=== PATIENT | male | born 2000 | race Caucasian/White ===

== ENCOUNTER 2024-10-02 14:56 | Emergency (ER) | payer BC, SELFPAY ==
--- NOTE | ~2024-10-02 | XR_ITS ---
EXAMINATION: XR foot RT min 3V DATE: 10/02/2024 15:33 INDICATION: Lateral right foot pain post injury 2 days prior TECHNIQUE: Dorsoplantar, two oblique and lateral views of the right foot were obtained. COMPARISON: None. FINDINGS: Alignment is normal. No fracture. Joint spaces are normal. Bone island at the posterior calcaneus. Fo akiko mild soft tissue swelling dorsal to the midfoot. No ankle joint effusion. IMPRESSION: 1. No acute osseous abnormality. Reviewed, dictated and finalized at location A.
[2024-10-02 15:11] VITALS: BP 134/78; PULSE 81; RESP 16; TEMP 36.5; O2SAT 100
--- NOTE | 2024-10-02 15:49 | ED_ITS ---
HPI - General Adult General Chief complaint: Extremity Injury, Lower Stated complaint: R FOOT INJURY Source: patient Mode of arrival: ambulatory Limitations: no limitations History of Present Illness HPI narrative: Patient presents for evaluation of right foot pain. Symptom onset 2 days ago. He was showering after exercising and hit his foot against the transition out of the shower. He states his pain seemed to worsen yesterday. He rates it as 7/10 in severity. Pain is worse with weightbearing/walking. He has not taken any medication to assist with his symptoms. Related Data Home Medications ?Medication ?Instructions ?Recorded ?Confirmed ?Last Taken ?Type No Home Medications 10/02/24 10/02/24 Unknown History Allergies Allergy/AdvReac Type Severity Reaction Status Date / Time gluten Allergy Unknown Unknown Verified 10/02/24 15:21 Review of Systems Review of Systems: CONSTITUTIONAL: Denies fever, chills, or sweats. EYES: Denies visual changes, redness, or discharge. ENT: Denies rhinorrhea, congestion, sore throat, or otalgia. CARDIOVASCULAR: Denies chest pain, palpitations, or edema. RESPIRATORY: Denies cough or dyspnea. GASTROINTESTINAL: Denies abdominal pain, nausea, vomiting, or diarrhea. GENITOURINARY: Denies dysuria or hematuria. SKIN: Denies rash or itching. MUSCULOSKELETAL: Reports right sided foot pain NEUROLOGIC: Denies headache, numbness, dizziness, or weakness. PSYCHIATRIC: Denies anxiety or depression. PMFSH Past Medical History Medical History No pertinent past medical history Surgical History Surgical History No pertinent past surgical history Family History Family History Mother Family history non-contributory Social History Social History Substance use: never Gender identity (if verbalized by the patient): Male Spiritual care concerns: No Exam Narrative: GENERAL: Well-appearing, well-nourished, and in no acute distress. HEAD: Normocephalic, atraumatic. EYES: PERRLA and EOMI. ENT: Nares clear, no rhinorrhea or epistaxis. Mucous membranes moist. Oropharynx without tonsillar hypertrophy exudate or other lesions. Bilateral TMs pearly landon nonbulging NECK: Supple. No adenopathy or masses. No carotid bruits or JVD CHEST: Clear to auscultation. No respiratory distress. No wheezes rales or rhonchi HEART: Regular rate and rhythm. No murmur heard. Normal peripheral pulses. ABDOMEN: Soft, nontender, nondistended, normal active bowel sounds. EXTREMITIES: There is tenderness over the lateral aspect of the right foot, overlying the 4th and 5th metatarsals. No significant swelling SKIN: Warm, dry, no rash. NEURO: No focal deficits. Alert and oriented x3. PSYCH: Normal mood and affect. Course Course Emergency Course: This is a 24-year-old male who presented for evaluation of right foot pain. X-ray negative for fracture. Provided with postop shoe and crutches. Recommend follow-up in the next week for further evaluation and treatment to ensure no occult fracture. NSAIDs for pain. Advised on RICE therapy. Go to the ER for worsening symptoms. Pt in agreement with plan of care. Level of Care: Express Care Visit Vital Signs Vital signs: Vital Signs Temperature 36.5 C 10/02/24 15:11 Pulse Rate 81 10/02/24 15:11 Respiratory Rate 16 10/02/24 15:11 Blood Pressure 134/78 10/02/24 15:11 Pulse Oximetry 100 10/02/24 15:11 Temperature 36.5 C 10/02/24 15:11 Pulse Rate 81 10/02/24 15:11 Respiratory Rate 16 10/02/24 15:11 Blood Pressure 134/78 10/02/24 15:11 Pulse Oximetry 100 10/02/24 15:11 Medical Decision Making Vital Signs Vital Signs: Vital Signs Temperature 36.5 C 10/02/24 15:11 Pulse Rate 81 10/02/24 15:11 Respiratory Rate 16 10/02/24 15:11 Blood Pressure 134/78 10/02/24 15:11 Pulse Oximetry 100 10/02/24 15:11 Temperature 36.5 C 10/02/24 15:11 Pulse Rate 81 10/02/24 15:11 Respiratory Rate 16 10/02/24 15:11 Blood Pressure 134/78 10/02/24 15:11 Pulse Oximetry 100 10/02/24 15:11 Imaging Data Radiologist's impression: EXAMINATION: XR foot RT min 3V DATE: 10/02/2024 15:33 INDICATION: Lateral right foot pain post injury 2 days prior TECHNIQUE: Dorsoplantar, two oblique and lateral views of the right foot were obtained. COMPARISON: None. FINDINGS: Alignment is normal. No fracture. Joint spaces are normal. Bone island at the posterior calcaneus. Focal mild soft tissue swelling dorsal to the midfoot. No ankle joint effusion. IMPRESSION: 1. No acute osseous abnormality. Discharge Plan Discharge Clinical Impression: Contusion of foot Patient Disposition: Home Condition: Stable Instructions: Antibiotic Form, Foot Contusion (ED) Patient Language: Taiwanese Prescriptions: No Action No Home Medications Follow-up/Referrals: Ya Martin DO [Physician] - Time of Disposition: 15:48
== END 2024-10-02 15:53 | disposition home or self-care (01) ==
PROVIDERS: Emergency Provider Nurse Practitioner
DX: S90.31XA Contusion of right foot, initial encounter (principal); W22.8XXA Striking against or struck by other objects, initial encounter; Y93.E1 Activity, personal bathing and showering
CPT/HCPCS: 73630; 99213; G0463

== ENCOUNTER 2024-10-09 12:52 | Emergency (ER) | payer BC, SELFPAY ==
[2024-10-09 13:03] VITALS: BP 110/85; PULSE 73; RESP 16; TEMP 36.2; O2SAT 100
--- NOTE | 2024-10-09 13:43 | ED_ITS ---
HPI - Ear Problem General Chief complaint: Ear Stated complaint: Ear Clogged Time Seen by Provider: 10/09/24 13:44 Source: patient, RN notes reviewed and old records reviewed Mode of arrival: ambulatory Limitations: no limitations History of Present Illness HPI Narrative: 24-year-old male presents to the [facility] with right ear clogged cannot hear at his right ear started this morning. Tried using Q-tips to make it better, states that he thinks he made it worse. Related Data Allergies Allergy/AdvReac Type Severity Reaction Status Date / Time gluten Allergy Unknown Unknown Verified 10/09/24 13:02 Review of Systems Review of Systems: All systems reviewed & are unremarkable except as noted in HPI and below Constitutional: Constitutional: Reports no additional constitutional complaints ENT: Reports as per HPI Cardiovascular: Cardiovascular: Reports no additional cardiovascular complaints, Denies chest pain and Denies dyspnea Respiratory: Respiratory: Reports no additional respiratory complaints, Denies chest congestion, Denies cough and Denies dyspnea Musculoskeletal: Musculoskeletal: Reports no additional musculoskeletal complaints Integumentary/Breasts: Skin/Breast: Reports system reviewed and no additional complaints, except as docu PMFSH Past Medical History Medical History No pertinent past medical history Surgical History Surgical History No pertinent past surgical history Family History Family History Mother Family history non-contributory Social History Social History Substance use: never Gender identity (if verbalized by the patient): Male Spiritual care concerns: No Comments At the time of my signature, I reviewed and agree with the nursing past medical, surgical, social, and family history. There is no relevant family history pertinent to the patient complaint. Exam Const: General: cooperative, healthy appearing, comfortable, no acute distress, well developed, alert and well nourished Nutritional Appearance: well nourished Orientation/consciousness: patient oriented x3 Limitations: no limitations HENMT: Head: normal to inspection Ears: external ears normal, mastoids normal, no periauricular adenopathy and Abnormal EAC present cerumen impaction bilateral and erythema on the right Face/Nose/Sinus: Normal external nose present Mouth: Yes Normal oral and palatal mucosa present, Yes lip normal, Yes tongue normal and Yes moist mucous membranes Throat: posterior oropharynx normal, uvula midline and no uvular edema Eyes: General: appearance normal, both eyes and all related structures Alignment and Position: alignment normal Neck: Neck: normal visual inspection, full ROM, no lymphadenopathy and no meningeal signs Chest: Chest palpation & inspection: normal inspection of the chest Resp: Effort & Inspection: normal respiratory effort and able to speak in complete sentences Auscultation: clear to auscultation bilaterally, no crackles, no rales, no rhonchi and no wheezes Cardio: Rate: regular rate Skin: General skin exam: normal color and no rashes or lesions noted Neuro: General: patient oriented x3, gait normal, moves all extremities and no meningeal signs Cognition (Neuro): normal cognition Speech: normal speech Gait exam (Neuro): Normal gait present Extrem: General: normal to inspection, full ROM, capillary refill normal and normal gait Psych: Appearance: grossly normal and well kempt Mental Status: mental status grossly normal Speech and movement: Normal speech and movement present and Clear speech present Affect: normal affect Attitude: cooperative Course Course Level of Care: Express Care Visit Vital Signs Vital signs: Vital Signs Temperature 97.2 F L 10/09/24 13:03 Pulse Rate 73 10/09/24 13:03 Respiratory Rate 16 10/09/24 13:03 Blood Pressure 110/85 10/09/24 13:03 Pulse Oximetry 100 10/09/24 13:03 Temperature 97.2 F L 10/09/24 13:03 Pulse Rate 73 10/09/24 13:03 Respiratory Rate 16 10/09/24 13:03 Blood Pressure 110/85 10/09/24 13:03 Pulse Oximetry 100 10/09/24 13:03 Reviewed Procedures Ear Wax Removal Both Ears: Ear Wax Removal Date: 10/09/24 Ear Wax Removal Time: 14:02 Cerumenolytic Used: other ( peroxide water) Results: Re-examined: cerumen removed completely TM Examination: TM(s) intact, normal appearance Ear Canal Exam: other ( irritation noted to the right ear canal) Patient Tolerated Procedure: well Complications: no problems Technique: ear canal irrigated and ear canal curetted Medical Decision Making MDM Narrative Medical decision making narrative: Patient sitting comfortably in exam room. Nontoxic, vitals stable. Patient in no acute distress Patient presents for Decreased hearing worse on the right than the left. Cerumen noted bilateral worse on the right than left. Cerumen removed, patient tolerated well he erythema noted to the ear canal where the cerumen was on the right side, prescribed a antibiotic drop patient appropriate for outpatient treatment with close follow-up Discharge instructions reviewed with patient, as well as provided in writing per nursing staff. The instructions also include specific and strict return/GO TO THE ER as well as f/u information. All questions have been answered, and the patient deny any further questions with discharge and discharge plan. Some parts of this dictation were generated by voice recognition software and may contain typographical and/or grammatical inaccuracies. Differential Diagnosis Differential Diagnosis: otitis media, serous otitis, cerumen impaction Medical Records Medical records reviewed: Yes I reviewed the external patient's medical records. Vital Signs Vital Signs: Vital Signs Temperature 97.2 F L 10/09/24 13:03 Pulse Rate 73 10/09/24 13:03 Respiratory Rate 16 10/09/24 13:03 Blood Pressure 110/85 10/09/24 13:03 Pulse Oximetry 100 10/09/24 13:03 Temperature 97.2 F L 10/09/24 13:03 Pulse Rate 73 10/09/24 13:03 Respiratory Rate 16 10/09/24 13:03 Blood Pressure 110/85 10/09/24 13:03 Pulse Oximetry 100 10/09/24 13:03 Reviewed Lab Data Lab results reviewed: Yes I reviewed the patient's lab results. Labs: Reviewed Critical Care Time Critical Care Time Critical Care Time: No Discharge Plan Discharge Clinical Impression: Bilateral impacted cerumen, Irritation of external ear canal Patient Disposition: Home Condition: Stable Instructions: Antibiotic Form, How to Use Ear Drops (ED) Additional Instructions: You had Cerumen (EAR wax impaction). Do not use Q-tips or put anything in the ear. This can damage the ear. Instead , use Debrox or ear wax remover. Place 5 drops in ear after a hot shower and place a warm compress over the ear for 20 minutes. alternate doing this every 3-4 days. It will break up the wax gently. Do not use too much pressure. Once you have all of the cerumen out of your ears, you may do preventative treatment to prevent this from happening again. Use 5 drops once weekly after a hot shower. Patient Language: Faroese Prescriptions: New [id number] 3.5-10,000-1 mg/mL-unit/mL-% drops,suspension 4 drp RIGHT EAR TID 7 Days Qty: 10 0RF Follow-up/Referrals: PHYSICIAN,ADDRESSOGRAPH OPERATOR [Primary Care Provider] - Stand Alone Forms: Work/School Release IP Time of Disposition: 14:09
--- NOTE | 2024-10-09 14:26 | PC.NURSE ---
1413 ear irrigation completed by provider.
== END 2024-10-09 14:13 | disposition home or self-care (01) ==
PROVIDERS: Emergency Provider Nurse Practitioner
DX: H61.23 Impacted cerumen, bilateral (principal)
CPT/HCPCS: 69210; 99213; A9270; G0463